=== PATIENT | female | born 1965 | race Caucasian/White ===

== ENCOUNTER 2024-01-31 18:42 | Emergency (ER) | payer BC, SELFPAY ==
[2024-01-31 18:44] VITALS: BP 137/85
[2024-01-31 19:37] LABS: % Basophils 1.5 % (0-2); % Eosinophils 5.1 % (0-6); % Immature Granulocytes 0.1 % (0-0.5); % Lymphocytes 38.7 % (20.5-51.1); % Monocytes 8.4 % (1.7-9.3); % Neutrophils 46.2 % (42.2-75.2); Absolute Basophils 0.1 10^3/uL (0-0.2); Absolute Eosinophils 0.4 10^3/uL (0-0.7); Absolute Lymphocytes 3.1 10^3/uL (1.2-3.4); Absolute Monocytes 0.7 10^3/uL (0.1-0.6); Absolute Neutrophils 3.8 10^3/uL (1.4-6.5); Hematocrit 41.5 % (37.0-47.0); Hemoglobin 14.4 g/dL (12.0-16.0); Mean Corp Hgb Conc. 34.7 g/dL (33.0-37.0); Mean Corpuscular Hgb 29.8 pg (27.0-31.0); Mean Corpuscular Volume 85.9 fL (81.0-99.0); Mean Platelet Volume 9.5 fL (7.4-10.4); Nucleated Red Blood Cells % 0 %; Platelet Count 311 10^3/uL (130-400); Red Blood Cell Count 4.83 10^6/uL (4.20-5.40); Red Cell Dist. Width 11.9 % (11.5-14.5); White Blood Cell Count 8.1 10^3/uL (4.8-10.8)
[2024-01-31 19:54] LABS: ALT (SGPT) 38 U/L (0-35); AST (SGOT) 30 U/L (14-36); Albumin 4.6 g/dl (3.5-5.0); Alkaline Phosphatase 57 U/L (38-126); Blood Urea Nitrogen 15 mg/dl (7-17); Calcium 9.6 mg/dl (8.4-10.2); Carbon Dioxide 31 mmol/L (22-30); Chloride 101 mmol/L (98-107); Glucose 91 mg/dl (70-99); Lipase 141 U/L (23-300); Potassium 4.2 mmol/L (3.5-5.1); Sodium 137 mmol/L (135-145); Total Bilirubin 0.6 mg/dl (0.2-1.3); Total Protein 7.3 g/dl (6.3-8.2); eGFR > 60.00
[2024-01-31 20:20] VITALS: BMI 21.3
--- NOTE | 2024-01-31 20:22 | ED.GENMED ---
History of Present Illness
General
Chief Complaint: Flank Pain
Source: patient
Exam Limitations: none
Time Seen by Provider: 01/31/24 20:12
Nursing documentation reviewed up to this point in time: agreed with
History of Present Illness
History of Present Illness:
58 yo female with hx of urethral implant, presents stating she developed right flank pain 11 a.m. today as well as dysuria and frequency to urinate. She went to PCP and urine dipped positive for blood so sent here for evaluation. Pt denies n/v/d/c.
Denies fever/chills. Denies abdominal pain.
Past History
Past History
ED Past Medical History: Hypothyroidism, Psychiatric (Depression) and Other (Borderline personality, depression, multiple suicide attempts, hyperlipidemia, IBS, asthma, hypothyroidism)
ED Past Surgical History: Gynecological and Tonsilectomy
Social History
Tobacco: Other (Medical marijuana)
Alcohol: Occasional
Drug: Narcotics
Personal:
Living: with family
Employment: Employed
Family History
Family History: CAD and Other
Review of Systems
Review of Systems
Allergies reviewed?: Yes
All Other Systems: ROS reviewed and negative except as documented in HPI and ROS
Constitutional: Denies fever or chills
Respiratory: Denies trouble breathing
Cardiac: Denies chest pain
ABD/GI: Denies abdominal pain, nausea, vomiting or diarrhea
: Reports flank pain (Right) and incontinence
Musculoskeletal: Reports no symptoms
Skin: Reports no symptoms
Neurological: Reports no symptoms
Phy Exam
Physical Exam
Physical Exam:
GENERAL: No acute distress. A&Ox3.
CONSTITUTIONAL: Afebrile.
EYES: Clear, conjunctivae normal
ENMT: moist mucus membranes, Pharynx nl
RESPIRATORY: Regular respirations, nonlabored, lungs clear.
CARDIOVASCULAR: Regular rate and rhythm, no murmurs, no rubs.
GI: Soft, nontender, normal BS, no right flank tenderness to percussion
MUSCULOSKELETAL: Moves with ease. Well perfused.
SKIN: Warm, dry, pink
PSYCH: Normal mood and affect. Well kept, interactive and appropriate
NEUROLOGIC: Awake, alert and oriented. No focal neurological deficits
Course
Orders/Labs/Results
Orders:
Orders
01/31/24 18:47
CT Abd/pelvis Wo Iv Cont Urgent
Comment:
Reason For Exam: kidney stone
01/31/24 19:31
Complete Blood Count/With Diff Urgent
Comprehensive Metabolic Panel Urgent
Lipase Urgent
01/31/24 20:27
Urinalysis Reflex To Culture Urgent
Date Specimen was Collected: 01/31/24
Time Specimen was Collected: 20:23
Abnormal Lab Results
01/31/24
19:31
Absolute Monos (auto) 0.7 H 10^3/uL
(0.1-0.6)
Carbon Dioxide 31 H mmol/L
(22-30)
ALT 38 H U/L
(0-35)
01/31/24 19:31
01/31/24 19:31
Vital Signs
Initial and Last Documented VS:
Initial Vital Signs
Temp Pulse Resp BP Pulse Ox
98.3 F 73 20 137/85 97
01/31/24 18:44 01/31/24 18:44 01/31/24 18:44 01/31/24 18:44 01/31/24 18:44
Last Documented Vital Signs
Temp Pulse Resp BP Pulse Ox
98.3 F 75 18 112/83 98
01/31/24 20:30 01/31/24 20:30 01/31/24 20:30 01/31/24 20:30 01/31/24 20:30
MDM/Problems Addressed
Differential Diagnosis Includes:
UTI, pyelonephritis, cystitis, kidney stone
MDM/Problems Addressed:
58 yo female with hx of urethral implant, presents stating she developed right flank pain 11 a.m. today as well as dysuria and frequency to urinate. She went to PCP and urine dipped positive for blood so sent here for evaluation. Pt denies nausea,
no vomiting. denies v/d/c. Denies fever/chills. Denies abdominal pain.
afebrile
CBC, CMP normal
U/A: Neg
CT abdomen pelvis radiology report read: IMPRESSION:
No hydronephrosis or nephroureterolithiasis. Mild urinary bladder wall thickening, nonspecific but recommend correlation with a urinalysis. Previous urethral reimplantation.
Patient totally nontoxic-appearing. Reviewed all results with her. Copies of reports given to her. No sign of infection/kidney or ureteral stone.
Patient ambulated out with normal gait at discharge
*Critical Care Note
Total Time (30-74mins, 75-104mins- exclusive of procedures): Not Applicable
ED Attending Note
-
Portions of this chart may have been created with voice recognition software.� Occasional wrong word or��sound alike� substitutions may have occurred due to the inherent limitations of voice recognition software.
Discharge Plan
Departure
Patient Disposition: Home (Routine Discharge)
Date of Disposition: 01/31/24
Time of Disposition: 21:01
Patient with high blood pressure during this ER visit?: No
Condition: Good
Discharge Problem:
Acute right flank pain
Instructions: Flank Pain ED
Prescriptions:
No Action
atorvastatin 10 MG tablet
40 mg PO QPM
venlafaxine [Effexor XR] 150 MG capsule,extended release 24hr
300 mg PO DAILY
albuterol sulfate 1 PUFF HFA aerosol inhaler
2 puff inhalation R Q4HPRN PRN (Reason: shortness of breath)
cholecalciferol (vitamin D3) 1,000 UNITS tablet
1,000 units PO DAILY
cyanocobalamin (vitamin B-12) 1,000 MCG tablet
1,000 mcg PO DAILY
olopatadine [Patanol] 1 DROP drops
1 drp BOTH EYES DAILYPRN PRN (Reason: ALLERGIES)
Medical Cannabis-Patient's Own
1 dose PO DAILY@1999
Patient Comments:
01/23/20:
Elpidio [place] [phone]
levothyroxine 75 MCG tablet
75 mcg PO DAILY AT 0700 Qty: 30 0RF
oxcarbazepine 150 MG tablet
150 mg PO DAILY
oxcarbazepine 150 MG tablet
300 mg PO HS
prochlorperazine maleate 10 MG tablet
10 mg PO Q8HPRN PRN (Reason: headaches and nausea) Qty: 15 0RF
Referrals:
Nehal Jean, DO [Family Provider] - As needed
Activity Restrictions/Additional Instructions:
As we discussed, your workup here today shows nothing worrisome.
your blood work is normal
Your urine shows no sign of blood or infection
Your CAT scan also shows nothing worrisome, specifically no indication of kidney stone
Take ibuprofen 600 mg, with food, every 6 hours for the next 2 days and see if it helps.
See your doctor for recheck if not 100% better in 5-7 days
Interventions
Interventions:
*Risk Screen - Suicide Last Done: 01/31/24 18:44
*General Assessment Last Done: 01/31/24 18:44
*Neglect/Abuse Screening Last Done: 01/31/24 18:44
ED- Fall Risk Assessment Last Done: 01/31/24 20:52
*ED COVID-19 Vaccine History Last Done: 01/31/24 20:52
*Nursing Disposition Last Done: 01/31/24 21:13
KE-Tzkuzy-Gghrtbfyrn Assessment Last Done: 01/31/24 20:52
ED-Female Genitourinary Assessment Last Done: 01/31/24 20:52
Discharge Date and Time
Discharge Date/Time: 01/31/24 21:15
Print Language: SPANISH
[2024-01-31 20:30] VITALS: BP 112/83
[2024-01-31 20:39] LABS: Urine Albumin Negative (Neg - Trace); Urine Bilirubin Negative (Negative); Urine Character Clear (Clear); Urine Color Yellow; Urine Glucose Negative (Negative); Urine Ketone Negative (Negative); Urine Leukocyte Negative (Negative); Urine Nitrite Negative (Negative); Urine Occult Blood Negative (Negative); Urine Urobilinogen Negative (Neg - 1+)
== END 2024-01-31 21:15 | disposition home or self-care (01) ==
LOC: EMR 18:42
PROVIDERS: Emergency Medicine; Registered Nurse; EMERGENCY PHYSICIAN Student in an Organized Health Care Education/Training Program; FAMILY PHYSICIAN Family Medicine
DX: R10.9 Unspecified abdominal pain (principal); R30.0 Dysuria; R35.0 Frequency of micturition; F32.A Depression, unspecified; F60.3 Borderline personality disorder; K58.9 Irritable bowel syndrome, unspecified; J45.909 Unspecified asthma, uncomplicated; F41.9 Anxiety disorder, unspecified; E78.5 Hyperlipidemia, unspecified; E06.3 Autoimmune thyroiditis; Z91.51 Personal history of suicidal behavior; Z88.1 Allergy status to other antibiotic agents; Z88.3 Allergy status to other anti-infective agents; Z88.0 Allergy status to penicillin; Z88.2 Allergy status to sulfonamides; Z91.048 Other nonmedicinal substance allergy status
CPT/HCPCS: 99284; 74176; 80053; 81003; 83690; 85025

== ENCOUNTER 2024-09-05 11:31 | Emergency (ER) | payer BC, SELFPAY ==
[2024-09-05 11:35] VITALS: BP 128/83
[2024-09-05 11:38] VITALS: BP 128/83
[2024-09-05 12:13] LABS: % Basophils 0.2 % (0-2); % Immature Granulocytes 1.4 % (0-0.5); % Lymphocytes 10.2 % (20.5-51.1); % Monocytes 4.8 % (1.7-9.3); % Neutrophils 83.4 % (42.2-75.2); Absolute Immature Granulocytes 0.2 10^3/uL (0-0.05); Absolute Lymphocytes 1.3 10^3/uL (1.2-3.4); Absolute Monocytes 0.6 10^3/uL (0.1-0.6); Absolute Neutrophils 10.3 10^3/uL (1.4-6.5); Hematocrit 42.7 % (37.0-47.0); Hemoglobin 14.3 g/dL (12.0-16.0); Mean Corp Hgb Conc. 33.5 g/dL (33.0-37.0); Mean Corpuscular Hgb 29.7 pg (27.0-31.0); Mean Corpuscular Volume 88.8 fL (81.0-99.0); Mean Platelet Volume 9.2 fL (7.4-10.4); Nucleated Red Blood Cells % 0 %; Platelet Count 513 10^3/uL (130-400); Red Blood Cell Count 4.81 10^6/uL (4.20-5.40); Red Cell Dist. Width 11.4 % (11.5-14.5); White Blood Cell Count 12.4 10^3/uL (4.8-10.8)
[2024-09-05 12:19] LABS: Urine Albumin 2+ (Neg - Trace); Urine Bilirubin Negative (Negative); Urine Character Clear (Clear); Urine Color Yellow; Urine Glucose 2+ (Negative); Urine Ketone Negative (Negative); Urine Leukocyte Negative (Negative); Urine Nitrite Negative (Negative); Urine Occult Blood 2+ (Negative); Urine Urobilinogen Negative (Neg - 1+)
[2024-09-05 12:33] LABS: ALT (SGPT) 97 U/L (0-35); AST (SGOT) 67 U/L (14-36); Albumin 4.1 g/dl (3.5-5.0); Alkaline Phosphatase 139 U/L (38-126); Blood Urea Nitrogen 13 mg/dl (7-17); Calcium 9.9 mg/dl (8.4-10.2); Carbon Dioxide 25 mmol/L (22-30); Chloride 99 mmol/L (98-107); Glucose 160 mg/dl (70-99); Potassium 4.4 mmol/L (3.5-5.1); Sodium 137 mmol/L (135-145); Total Bilirubin 0.5 mg/dl (0.2-1.3); Total Protein 7.5 g/dl (6.3-8.2); eGFR > 60.00
[2024-09-05 12:55] LABS: COVID-19 Antigen Negative (Negative)
[2024-09-05 13:56] VITALS: BP 123/81
[2024-09-05 14:11] LABS: Urine Amorphous Seen
[2024-09-05 14:12] LABS: Urine White Cell 0-2 /HPF (0-5)
--- NOTE | 2024-09-05 14:44 | ED.GENMED ---
History of Present Illness
General
Chief Complaint: Cough
Source: patient
Exam Limitations: none
Time Seen by Provider: 09/05/24 14:43
Nursing documentation reviewed up to this point in time: agreed with
History of Present Illness
History of Present Illness:
59 y/o female with pmh asthma, IBS, hypothyroidism who presents to the ER today with concerns of fever and cough and flu like symptoms for the past week. She states that this started after she was in contact with her nephew who had flu like
symptoms. She also has associated nausea and occasional diarrhea, denies abdominal pain. She denies hematochezia, rectal bleeding. She also has had chest tightness and pain the past week. She saw her primary yesterday who started her on doxycycline
and steroids, as well as cough medicine. She reports minimal relief with cough medicine. Tmax 102.8F at home. This morning, she started to develop hemoptysis. She states that it is largely blood tinged sputum but occasionally will note a glob of
blood. She denies syncopal episodes, shortness of breath, recent long distance travel, redness or swelling or pain in her lower extremities. She states that she used to smoke cigarettes in her 20s but currently denies any use of tobacco products.
Past History
Past History
ED Past Medical History: Hypothyroidism, Psychiatric (Depression) and Other (Borderline personality, depression, multiple suicide attempts, hyperlipidemia, IBS, asthma, hypothyroidism)
ED Past Surgical History: Gynecological and Tonsilectomy
Social History
Tobacco: Other (Medical marijuana)
Alcohol: Occasional
Drug: Narcotics
Personal:
Living: with family
Employment: Employed
Family History
Family History: CAD and Other
Review of Systems
Review of Systems
All Other Systems: ROS reviewed and negative except as documented in HPI and ROS
Phy Exam
Physical Exam
Physical Exam:
General: Patient is well appearing and in no acute distress; non-toxic
Skin: Warm and dry, no rashes or lesions
Head: Normocephalic, atraumatic
Eyes: Sclera non-icteric. EOMs intact.
Cardiac: Regular rate and rhythm, no murmurs
Peripheral Vascular: No lower extremity swelling or edema, negative quintin's sign bilaterally
Pulm: Normal respiratory effort, no wheezes, rales, or rhonchi
Abdomen: No abdominal tenderness to palpation
Neuro: CN II-XII intact, no focal neurologic deficits.
Psychiatric: Appropriate mood and affect.
Course
Orders/Labs/Results
Orders:
Orders
09/05/24 11:41
Chest [CR Chest - 2 Views ] Urgent
Comment:
Reason For Exam: cough
09/05/24 11:42
EKG [Electrocardiogram (*1)] Urgent
Reason for Study: Chest Pain
EKG- Treatment ONCE
09/05/24 11:58
COVID-19 Antigen Urgent
Source: Nasal Swab
Complete Blood Count/With Diff Urgent
Comprehensive Metabolic Panel Urgent
Urinalysis Reflex To Culture Urgent
Date Specimen was Collected: 09/05/24
Time Specimen was Collected: 11:42
Urine Microscopic Reflex Cult Urgent
Influenza A+B Rapid Molecular Urgent
IRIS Source: Nasal Swab
Specimen Description:
Date Specimen was Collected: 09/05/24
Time Specimen was Collected: 11:42
09/05/24 15:11
0.9% Sodium Chloride 1000 ml [Nss] 1,000 ml IV BOLUS
09/05/24 15:14
Ketorolac [Toradol] 15 mg IV NOW STA
09/05/24 15:15
Ondansetron Injectable [Zofran] 4 mg IV NOW STA
09/05/24 15:28
Troponin I Urgent
Abnormal Lab Results
09/05/24
11:58
WBC 12.4 H 10^3/uL
(4.8-10.8)
RDW 11.4 L %
(11.5-14.5)
Plt Count 513 H 10^3/uL
(130-400)
Abs Immat Gran (auto) 0.2 H 10^3/uL
(0-0.05)
Absolute Neuts (auto) 10.3 H 10^3/uL
(1.4-6.5)
Immature Gran % 1.4 H %
(0-0.5)
Neutrophils % 83.4 H %
(42.2-75.2)
Lymphocytes % 10.2 L %
(20.5-51.1)
Creatinine 0.5 L mg/dL
(0.6-1.0)
Glucose 160 H mg/dl
(70-99)
AST 67 H U/L
(14-36)
ALT 97 H U/L
(0-35)
Alkaline Phosphatase 139 H U/L
(38-126)
Ur Occult Blood Reflex 2+ A
(Negative)
Urine RBC 3-6 A /HPF
(0-2)
Urine Glucose 2+ A
(Negative)
Urine Albumin (Reflex) 2+ A
(Neg - Trace)
09/05/24 11:58
09/05/24 11:58
Vital Signs
Initial and Last Documented VS:
Initial Vital Signs
Temp Pulse Resp BP Pulse Ox
99.6 F 107 18 128/83 94
09/05/24 11:35 09/05/24 11:35 09/05/24 11:35 09/05/24 11:35 09/05/24 11:35
Last Documented Vital Signs
Temp Pulse Resp BP Pulse Ox
98.6 F 89 15 132/70 99
09/05/24 13:56 09/05/24 17:11 09/05/24 17:11 09/05/24 17:11 09/05/24 17:11
MDM/Problems Addressed
Differential Diagnosis Includes:
ddx include acute bronchitis, pneumonia, viral syndrome, myocarditis, PE
MDM/Problems Addressed:
59 y/o female presents to the ER today with concerns of hemoptysis x1 day proceeded by flu like symptoms for the past week. She saw her primary care provider yesterday who started her on doxycycline and steroids yesterday. She is on day 2 of
doxycycline. She called her pcp todsay about the hemoptysis and was sent to the ED for furthere eval. On exam she is well appearing in no acute distress. Has had no active vomiting or diarrhea in the ER. Did rehydrate with bag of fluids, toradol for
chest discomfort and headache. Troponin undetectable. CXR shows LL lobe infiltrate which may present pneumonia. Discussed how this is a common cause of blood tinged sputum. Doubt PE. Encouraged to finish course of doxycycline. LFTs are elevated
today, pt states that she has hx of hepatic steatosis. Discussed getting labs repeated with PCP in one week. Patient stable for discharge.
*Pulse Oximetry
Patient hypoxic: no
*Critical Care Note
Total Time (30-74mins, 75-104mins- exclusive of procedures): Not Applicable
Data Reviewed
Review of Other/Old Records Reveals: Records (reviewed ER physician doc from 06/09/21)
Source: patient and records
Patient Management
Escalation/DeEscalation of care consider admission/obs:
Reviewed case with my attending, patient stable for discharge
ED Attending Note
-
Portions of this chart may have been created with voice recognition software.� Occasional wrong word or��sound alike� substitutions may have occurred due to the inherent limitations of voice recognition software.
Discharge Plan
Departure
Patient Disposition: Home (Routine Discharge)
Date of Disposition: 09/05/24
Time of Disposition: 16:49
Patient with high blood pressure during this ER visit?: Yes
Condition: Good
Discharge Problem:
Left lower lobe pneumonia
Instructions: Pneumonia, Adult (DC), BLOOD PRESSURE
Prescriptions:
No Action
atorvastatin 10 MG tablet
40 mg PO QPM
venlafaxine [Effexor XR] 150 MG capsule,extended release 24hr
300 mg PO DAILY
albuterol sulfate 1 PUFF HFA aerosol inhaler
2 puff inhalation R Q4HPRN PRN (Reason: shortness of breath)
cholecalciferol (vitamin D3) 1,000 UNITS tablet
1,000 units PO DAILY
cyanocobalamin (vitamin B-12) 1,000 MCG tablet
1,000 mcg PO DAILY
olopatadine [Patanol] 1 DROP drops
1 drp BOTH EYES DAILYPRN PRN (Reason: ALLERGIES)
Medical Cannabis-Patient's Own
1 dose PO DAILY@1999
Patient Comments:
01/23/20:
[place] [phone]
levothyroxine 75 MCG tablet
75 mcg PO DAILY AT 0700 Qty: 30 0RF
oxcarbazepine 150 MG tablet
150 mg PO DAILY
oxcarbazepine 150 MG tablet
300 mg PO HS
prochlorperazine maleate 10 MG tablet
10 mg PO Q8HPRN PRN (Reason: headaches and nausea) Qty: 15 0RF
Referrals:
Nehal Jean DO [Family Provider] -
Activity Restrictions/Additional Instructions:
Please continue Doxycycline as well as the steroids.
Please schedule a follow-up with your primary in 1 week for repeat x-ray and repeat blood work as well as reassessment.
You tested negative for flu today.
PLEASE RETURN EMERGENCY DEPARTMENT SHOULD YOU DEVELOP DIZZINESS, LIGHTHEADEDNESS, AND ACUTE WORSENING OR SYMPTOMS, TROUBLE BREATHING, TROUBLE SWALLOWING, FAINTING SPELLS, OR ANY OTHER SIGNS OR SYMPTOMS WORRISOME TO YOU.
Interventions
Interventions:
*Risk Screen - Suicide Last Done: 09/05/24 11:38
*General Assessment Last Done: 09/05/24 11:38
*Neglect/Abuse Screening Last Done: 09/05/24 11:38
ED- Fall Risk Assessment Last Done: 09/05/24 15:34
*ED COVID-19 Vaccine History Last Done: 09/05/24 11:38
*Nursing Disposition Last Done: 09/05/24 17:11
ED- Pulmonary Assessment Last Done: 09/05/24 15:34
Discharge Date and Time
Discharge Date/Time: 09/05/24 17:11
Print Language: MARTINIQUAIS
[2024-09-05] MEDS: ZOFRAN 4 MG IV (15:24)
[2024-09-05] MEDS: TORADOL 15 MG IV (15:24)
[2024-09-05] MEDS: NSS 1000 IV (15:24)
[2024-09-05 15:30] VITALS: BMI 21.9
[2024-09-05 15:58] LABS: Troponin I < 0.012 ng/ml
[2024-09-05 17:11] VITALS: BP 132/70
== END 2024-09-05 17:11 | disposition home or self-care (01) ==
LOC: EMR 11:31
PROVIDERS: Physician Assistant; Student in an Organized Health Care Education/Training Program; EMERGENCY PHYSICIAN Emergency Medicine; FAMILY PHYSICIAN Family Medicine
DX: J18.1 Lobar pneumonia, unspecified organism (principal); Z11.52 Encounter for screening for COVID-19; E03.9 Hypothyroidism, unspecified; J45.909 Unspecified asthma, uncomplicated; E78.5 Hyperlipidemia, unspecified; R79.89 Other specified abnormal findings of blood chemistry; Z87.891 Personal history of nicotine dependence
CPT/HCPCS: 99285; 96374; 96375; 96361; 71046; 80053; 81003; 81015; 84484; 85025; 87502; 87811; 93005

== ENCOUNTER → 2024-09-11 15:53 | Outpatient (REF) | payer BC, SELFPAY | LOC: RAD 15:53 | PROVIDERS: ATTENDING PHYSICIAN Family Medicine | DX: R04.2 Hemoptysis (principal) | CPT/HCPCS: 71275; Q9967 ==

== ENCOUNTER → 2024-09-29 10:19 | Outpatient (REF) | payer BC, SELFPAY | LOC: RAD 10:19 | PROVIDERS: ATTENDING PHYSICIAN Family Medicine | DX: J18.9 Pneumonia, unspecified organism (principal) | CPT/HCPCS: 71046 ==